=== PATIENT | female | born 1975 | race Hispanic/Latino ===

== ENCOUNTER 2020-12-19 01:30 | Inpatient (IN) | payer OTHER, SELFPAY ==
[2020-12-19] MEDS ORDERED: Misoprostol 200 MCG TAB PR PRN (20:48)
[2020-12-19] MEDS ORDERED: Ibuprofen 800 MG TAB PO PRN (20:48)
[2020-12-19] MEDS ORDERED: Lidocaine 1% (PF) 30 ML VIAL SC PRN (20:48)
[2020-12-19] MEDS ORDERED: Butorphanol Tartrate 1 MG/ML VIAL SLOW IVP PRN (20:48)
[2020-12-19] MEDS ORDERED: Ondansetron PF 4 MG/2 ML Vial IVP PRN (20:48)
[2020-12-19] MEDS ORDERED: Promethazine HCl 25 MG/ML VIAL IM PRN (20:48)
[2020-12-19] MEDS ORDERED: hydrALAZINE 20 MG/ML VIAL SLOW IVP PRN (20:48)
[2020-12-19] MEDS ORDERED: Acetaminophen 500 MG TAB PO PRN (20:48)
[2020-12-19] MEDS ORDERED: NS w/ Oxytocin 30 units 500 ML IV SCH (21:00)
[2020-12-19] MEDS ORDERED: Penicillin G Potassium 5 MILL.UNITS in Sodium Chloride 0.9% 100 ML IVPB SCH (21:00)
[2020-12-19] MEDS ORDERED: Mineral Oil Sterile 10 ML VIAL PO SCH ×2 (21:00→23:15)
[2020-12-19] MEDS ORDERED: Terbutaline Sulfate 1 MG/ML VIAL SC SCH (21:00)
[2020-12-19 21:19] VITALS: BMI 37.5
[2020-12-19 22:04] LABS: Hemoglobin 12.9 g/dL (12.0-15.5); Mean Corpuscular HGB CONC 33.2 g/dL (32.0-36.0); Mean Corpuscular Hemoglobin 29.7 pg (27.0-33.0); Mean Corpuscular Volume 89.4 fl (81.6-98.3); Mean Platelet Volume 9.6 fl (7.4-10.4); Platelet Count 270 10x3/uL (150-450); Red Blood Cell (RBC) Count 4.34 10x6/uL (3.90-5.03); White Blood Cell (WBC) Count 11.5 10x3/uL (3.5-10.5)
[2020-12-19 22:40] LABS: Hep B Surf Ag Non-Reactive S/CO (NonReactive)
[2020-12-19 22:41] LABS: Syphilis Antibody Nonreactive (Nonreactive); Syphilis Antibody Index 0.04 S/CO (<1.00 Non-Reactive)
[2020-12-19 22:43] LABS: HBSAg Index 0.17 S/CO (0-0.99)
[2020-12-20] MEDS ORDERED: Misoprostol 100 MCG TAB ONE (00:51)
[2020-12-20] MEDS ORDERED: Misoprostol 100 MCG TAB VAG SCH (03:00)
[2020-12-20] MEDS: Penicillin G 2.5 MILL.units 2.5 MILL.UNITS in Premix Bag 1 BAG IVPB SCH ×2 (03:48→11:43)
[2020-12-20] MEDS ORDERED: Terbutaline Sulfate 1 MG/ML VIAL ONE (15:45)
[2020-12-20] MEDS ORDERED: Famotidine/PF 20 mg/2ml Vial SLOW IVP PRN (15:49)
[2020-12-20] MEDS ORDERED: Bicitra 30 ML UDCUP PO PRN (15:49)
[2020-12-20] MEDS ORDERED: Azithromycin 500 MG VIAL ONE (15:51)
[2020-12-20] MEDS ORDERED: Azithromycin 500 MG in Sodium Chloride 0.9% 250 ML 250 ML IVPB SCH (16:00)
[2020-12-20] MEDS ORDERED: CEFAZOLIN 2 GM in Premix Bag 1 BAG IVPB SCH (16:00)
[2020-12-20] MEDS ORDERED: PHENYLEPHRINE-NS 100 MCG/ML 10 ML SYRINGE ONE (16:03)
[2020-12-20] MEDS ORDERED: Dexamethasone 4 mg/ml Vial ONE (16:03)
[2020-12-20] MEDS ORDERED: Ketorolac Tromethamine 30 MG/ML VIAL ONE (16:03)
[2020-12-20] MEDS ORDERED: Ondansetron PF 4 MG/2 ML Vial ONE (16:03)
[2020-12-20] MEDS ORDERED: Morphine PF 10 MG/10 ML VIAL ONE (16:03)
[2020-12-20] MEDS ORDERED: Oxytocin 10 UNITS/ML VIAL ONE ×2 (16:03→17:17)
[2020-12-20] MEDS ORDERED: Phenylephrine 40 MG/NS 250 ML 250 ML ONE (16:04)
[2020-12-20 16:52] LABS: Critical Notified Whom: LD RN; RapidComm Collect By LD RN
[2020-12-20 16:53] LABS: Critical Notified Whom: LD RN; RapidComm Collect By LD RN; pH (Cord, venous) 7.346 (7.250-7.350)
[2020-12-20] MEDS ORDERED: Naloxone HCl 0.4 mg/ml Vial IVP PRN ×2 (17:25)
[2020-12-20] MEDS ORDERED: Hydrocerin (Eucerin) Cream 120 gm Jar TOP PRN (17:25)
[2020-12-20] MEDS ORDERED: Ondansetron HCl/PF 4 MG/2 ML Vial IVP PRN (17:25)
[2020-12-20] MEDS ORDERED: Ondansetron PF 4 MG/2 ML Vial IVP PRN ×2 (17:25→21:36)
[2020-12-20] MEDS ORDERED: Promethazine HCl 25 MG/ML VIAL IM PRN (17:25)
[2020-12-20] MEDS ORDERED: Promethazine HCl 25 MG SUPP PR PRN (17:25)
[2020-12-20] MEDS ORDERED: Naloxone HCl 0.4 mg/ml Vial IV PRN (17:25)
[2020-12-20] MEDS ORDERED: Meperidine HCl/PF 25 MG/ML VIAL SLOW IVP PRN (17:25)
[2020-12-20] MEDS ORDERED: Fentanyl 100 MCG/2 ML VIAL SLOW IVP PRN (17:25)
[2020-12-20] MEDS ORDERED: diphenhydrAMINE 50 MG/ML VIAL IVP PRN (17:25)
[2020-12-20] MEDS ORDERED: Ketorolac Tromethamine 30 MG/ML VIAL IVP SCH (17:30)
[2020-12-20] MEDS ORDERED: Communication Order-Pharmacy FS SCH (17:30)
[2020-12-20] MEDS ORDERED: Terbutaline Sulfate 1 MG/ML VIAL SC SCH (18:00)
[2020-12-20] MEDS ORDERED: NS w/ Oxytocin 30 units 500 ML IV SCH (21:36)
[2020-12-20] MEDS ORDERED: diphenhydrAMINE 25 MG CAP PO PRN (21:36)
[2020-12-20] MEDS ORDERED: Lanolin Ointment 7 GM TUBE TOP PRN (21:36)
[2020-12-20] MEDS ORDERED: Docusate Calcium (SURFAK) 240 MG CAP PO SCH ×2 (21:36→22:15)
[2020-12-20] MEDS ORDERED: Misoprostol 200 MCG TAB PR PRN (21:36)
[2020-12-20] MEDS ORDERED: Boostrix 0.5 ML (Tdap) VIAL IM ONE (21:36)
[2020-12-20] MEDS ORDERED: Acetaminophen 325 MG TAB PO PRN (21:36)
[2020-12-20] MEDS ORDERED: hydrALAZINE 20 MG/ML VIAL SLOW IVP PRN (21:36)
[2020-12-20] MEDS: Ferrous Sulfate 325 MG TAB PO SCH (21:58)
[2020-12-21] MEDS ORDERED: HYDROcodone/Acetaminophen 5/325 mg Tablet PO PRN ×2 (05:30)
[2020-12-21 05:53] LABS: Mean Corpuscular HGB CONC 33.2 g/dL (32.0-36.0); Mean Corpuscular Hemoglobin 30.4 pg (27.0-33.0); Mean Corpuscular Volume 91.5 fl (81.6-98.3); Mean Platelet Volume 9.8 fl (7.4-10.4); Platelet Count 221 10x3/uL (150-450); RBC Distribution Width 14.4 % (11.5-14.5); Red Blood Cell (RBC) Count 3.29 10x6/uL (3.90-5.03); White Blood Cell (WBC) Count 15.4 10x3/uL (3.5-10.5)
[2020-12-21] MEDS: Ferrous Sulfate 325 MG TAB PO SCH ×2 (08:33→21:45)
[2020-12-21] MEDS: Docusate Calcium (SURFAK) 240 MG CAP PO SCH ×2 (09:24→21:44)
[2020-12-21] MEDS: Prenatal Vitamin 1 TAB PO SCH (09:24)
[2020-12-21] MEDS: Ketorolac Tromethamine 30 MG/ML VIAL IVP PRN ×2 (09:32→16:33)
[2020-12-21] MEDS: Ibuprofen 800 MG TAB PO SCH (21:44)
[2020-12-22] MEDS: Ibuprofen 800 MG TAB PO SCH (05:04)
[2020-12-22] MEDS: Ferrous Sulfate 325 MG TAB PO SCH (08:09)
[2020-12-22] MEDS: Docusate Calcium (SURFAK) 240 MG CAP PO SCH (09:01)
[2020-12-22] MEDS: Prenatal Vitamin 1 TAB PO SCH (09:01)
[2020-12-22 11:45] VITALS: BP 106/59; TEMP 97.7
== END 2020-12-22 13:55 | disposition home or self-care (01) | DRG 787 ==
LOC: CSHLD 19:30 → CSHPP 12-20 20:38
PROVIDERS: ADMIT Student in an Organized Health Care Education/Training Program; ATTEND Student in an Organized Health Care Education/Training Program
PROC: 10D00Z1 Extraction of Products of Conception, Low, Open Approach (ICD-10-PCS; principal; 2020-12-21)
DX: O32.2XX0 Maternal care for transverse and oblique lie, not applicable or unspecified (principal); O98.82 Other maternal infectious and parasitic diseases complicating childbirth; Z3A.39 39 weeks gestation of pregnancy; Z37.0 Single live birth; O99.214 Obesity complicating childbirth; B95.1 Streptococcus, group B, as the cause of diseases classified elsewhere; O76 Abnormality in fetal heart rate and rhythm complicating labor and delivery; O69.81X0 Labor and delivery complicated by cord around neck, without compression, not applicable or unspecified; O32.8XX0 Maternal care for other malpresentation of fetus, not applicable or unspecified
CPT/HCPCS: 36415; 51702; 82805; 85027; 86780; 86850; 86900; 86901; 87340; 99285; J1100; J1885; J2274; J2405; J2540; J2590; J3105; J3490